=== PATIENT | female | born 1980 | race African-American/Black ===

== ENCOUNTER 2019-03-06 11:39 | Emergency (ER) | payer SELFPAY ==
[~2019-03-06] VITALS: Ht 177.8 cm; Wt 72.6 kg
[2019-03-06 11:42] VITALS: BP 120/77; Ht 177.8 cm; Wt 72.6 kg
== END 2019-03-06 12:10 | disposition home or self-care (01) ==
LOC: ED 11:39
DX: G40.309 Generalized idiopathic epilepsy and epileptic syndromes, not intractable, without status epilepticus (principal); Z98.890 Other specified postprocedural states